=== PATIENT | male | born 1980 | race Caucasian/White ===

== ENCOUNTER 2016-06-28 13:42 | Observation (INO) | payer BC ==
--- NOTE | 2016-06-28 14:40 | ED ---
General Adult HPI - General Chief complaint: Chest Pain Stated complaint: Chest/Arm Pain Time Seen by Provider: 06/28/16 14:26 Source: patient, RN notes reviewed Mode of arrival: ambulatory Limitations: no limitations - History of Present Illness Initial comments: Patient 35-year-old male who presents emergency room today with chief complaint of left arm pain and chest pain. Patient does admit that he was at work earlier today proximal around noon he began feeling some discomfort to left arm. He states that over the last 2 days had a shooting pain up underneath him to the left rib cage. He states that today he noticed some burning type sensation to the left arm radiating up into the chest. States it was worse around noon. States she drove home from work was done to [place]. He states that this time currently 06/02 has improved some. States had pain with a shooting- type stabbing pain on the left side of the chest wall in the past but is never had burning sensation to the left arm in the past. He does admit to a family history of cardiac disease. He denies any other complaints or symptoms. Patient denies any recent fever, chills, shortness of breath, back pain, abdominal pain, numbness or tingling, dysuria or hematuria, constipation or diarrhea, headaches or visual changes, or any other complaints. - Related Data Home Medications Medication Instructions Recorded Confirmed CLIDINIUM-chlordiazePOXIDE [Librax] 1 cap PO BID 11/16/15 06/28/16 Simethicone [Gas-X] 125 mg PO DIRECTED PRN 11/16/15 06/28/16 Albuterol Sulfate [Proair Hfa] 2 puff INHALATION DAILY PRN 06/28/16 06/28/16 Atorvastatin [Lipitor] 10 mg PO HS 06/28/16 06/28/16 Lansoprazole [Prevacid] 30 mg PO DAILY 06/28/16 06/28/16 Allergies Allergy/AdvReac Type Severity Reaction Status Date / Time No Known Allergies Allergy Verified 06/28/16 15:29 Review of Systems ROS Statement: Those systems with pertinent positive or pertinent negative responses have been documented in the HPI. ROS Other: All systems not noted in ROS Statement are negative. Past Medical History Past Medical History: Hyperlipidemia, Pneumonia, Skin Disorder Additional Past Medical History / Comment(s): IBS, Fatty liver, alopecia, hypoglycemia History of Any Multi-Drug Resistant Organisms: None Reported Additional Past Surgical History / Comment(s): colonoscopy, vasectomy Past Anesthesia/Blood Transfusion Reactions: No Reported Reaction Past Psychological History: Anxiety Smoking Status: Former smoker Past Alcohol Use History: Occasional Additional Past Alcohol Use History / Comment(s): quit smoking 2008, smoked for 10-12 yrs, 1 PPD Past Drug Use History: None Reported - Past Family History Mother Family Medical History: No Reported History General Exam - General Exam Comments Initial Comments: General: The patient is awake and alert, in no distress, and does not appear acutely ill. Eye: Pupils are equal, round and reactive to light, extra-ocular movements are intact. No nystagmus. There is normal conjunctiva bilaterally. No signs of icterus. Ears, nose, mouth and throat: There are moist mucous membranes and no oral lesions. Neck: The neck is supple, there is no tenderness or JVD. Cardiovascular: There is a regular rate and rhythm. No murmur, rub or gallop is appreciated. Respiratory: Lungs are clear to auscultation, respirations are non-labored, breath sounds are equal. No wheezes, stridor, rales, or rhonchi. Gastrointestinal: Soft, non-distended, non-tender abdomen without masses or organomegaly noted. There is no rebound or guarding present. No CVA tenderness. Bowel sounds are unremarkable. Musculoskeletal: Normal ROM, no tenderness. Strength 5/5. Sensation intact. Pulses equal bilaterally 2+. Neurological: A&O x 3. CN II-XII intact, There are no obvious motor or sensory deficits. Coordination appears grossly intact. Speech is normal. Skin: Skin is warm and dry and no rashes or lesions are noted. Psychiatric: Cooperative, appropriate mood & affect, normal judgment. Limitations: no limitations Course Vital Signs 06/28/16 14:02 Temperature 97.8 F Pulse Rate 80 Respiratory 20 Rate Blood Pressure 125/84 O2 Sat by Pulse 98 Oximetry EKG Findings - EKG Comments: EKG Findings:: EKG performed at 1352: A 12-lead EKG was performed and interpreted by me as showing the following: Rate is 85, and rhythm is normal sinus. There are normal QRS complexes and normal R-wave progression. ST segments have no elevation or depression, and TX segments appear normal. Medical Decision Making - Medical Decision Making Patient reexamined at this time shows no signs of distress. Patient's x-rays negative. EKG shows normal sinus rhythm. Patient's cardiac enzymes negative. Patient will be admitted to observation for serial enzymes. - Lab Data Result diagrams: 06/28/16 15:19 06/28/16 15:19 Lab Results 06/28/16 06/28/16 06/28/16 Range/Units 15:19 15:19 15:19 WBC 6.2 (3.8-10.6) k/uL RBC 5.30 (4.30-5.90) m/uL Hgb 16.6 (13.0-17.5) gm/dL Hct 46.7 (39.0-53.0) % MCV 88.2 (80.0-100.0) fL MCH 31.2 (25.0-35.0) pg MCHC 35.4 (31.0-37.0) g/dL RDW 12.6 (11.5-15.5) % Plt Count 243 (150-450) k/uL Neutrophils % 69 % Lymphocytes % 21 % Monocytes % 6 % Eosinophils % 2 % Basophils % 1 % Neutrophils # 4.3 (1.3-7.7) k/uL Lymphocytes # 1.3 (1.0-4.8) k/uL Monocytes # 0.3 (0-1.0) k/uL Eosinophils # 0.1 (0-0.7) k/uL Basophils # 0.0 (0-0.2) k/uL PT (9.0-12.0) sec INR (<1.1) APTT (22.0-30.0) sec Sodium 143 (137-145) mmol/L Potassium 4.5 (3.5-5.1) mmol/L Chloride 106 (98-107) mmol/L Carbon Dioxide 24 (22-30) mmol/L Anion Gap 13 mmol/L BUN 18 (9-20) mg/dL Creatinine 1.01 (0.66-1.25) mg/dL Est GFR (MDRD) Af Amer >60 (>60 ml/min/1.73 sqM) Est GFR (MDRD) Non-Af >60 (>60 ml/min/1.73 sqM) Glucose 91 (74-99) mg/dL Calcium 9.7 (8.4-10.2) mg/dL Magnesium 2.1 (1.6-2.3) mg/dL Total Bilirubin 1.2 (0.2-1.3) mg/dL AST 31 (17-59) U/L ALT 58 (21-72) U/L Alkaline Phosphatase 79 (38-126) U/L Total Creatine Kinase 137 (55-170) U/L CK-MB (CK-2) 0.3 (0.0-2.4) ng/mL CK-MB (CK-2) Rel Index 0.2 Troponin I <0.012 (0.000-0.034) ng/mL Total Protein 8.1 (6.3-8.2) g/dL Albumin 4.9 (3.5-5.0) g/dL 06/28/16 Range/Units 15:19 WBC (3.8-10.6) k/uL RBC (4.30-5.90) m/uL Hgb (13.0-17.5) gm/dL Hct (39.0-53.0) % MCV (80.0-100.0) fL MCH (25.0-35.0) pg MCHC (31.0-37.0) g/dL RDW (11.5-15.5) % Plt Count (150-450) k/uL Neutrophils % % Lymphocytes % % Monocytes % % Eosinophils % % Basophils % % Neutrophils # (1.3-7.7) k/uL Lymphocytes # (1.0-4.8) k/uL Monocytes # (0-1.0) k/uL Eosinophils # (0-0.7) k/uL Basophils # (0-0.2) k/uL PT 11.8 (9.0-12.0) sec INR 1.2 (<1.1) APTT 24.2 (22.0-30.0) sec Sodium (137-145) mmol/L Potassium (3.5-5.1) mmol/L Chloride (98-107) mmol/L Carbon Dioxide (22-30) mmol/L Anion Gap mmol/L BUN (9-20) mg/dL Creatinine (0.66-1.25) mg/dL Est GFR (MDRD) Af Amer (>60 ml/min/1.73 sqM) Est GFR (MDRD) Non-Af (>60 ml/min/1.73 sqM) Glucose (74-99) mg/dL Calcium (8.4-10.2) mg/dL Magnesium (1.6-2.3) mg/dL Total Bilirubin (0.2-1.3) mg/dL AST (17-59) U/L ALT (21-72) U/L Alkaline Phosphatase (38-126) U/L Total Creatine Kinase (55-170) U/L CK-MB (CK-2) (0.0-2.4) ng/mL CK-MB (CK-2) Rel Index Troponin I (0.000-0.034) ng/mL Total Protein (6.3-8.2) g/dL Albumin (3.5-5.0) g/dL Disposition Clinical Impression: Chest pain Disposition: ADMITTED IP TO THIS [facility] Condition: Stable Time of Disposition: 16:20
[2016-06-28 15:33] LABS: Basophils % (A) 1 %; CH 30.5; CHCM 34.7; Eosinophils # (A) 0.1 k/uL (0-0.7); Eosinophils % (A) 2 %; HCT 46.7 % (39.0-53.0); HDW 2.66; HGB 16.6 gm/dL (13.0-17.5); Luc # (Auto) 0.15; Luc % (Auto) 2; Lymphocytes # (A) 1.3 k/uL (1.0-4.8); Lymphocytes % (A) 21 %; MCH 31.2 pg (25.0-35.0); MCHC 35.4 g/dL (31.0-37.0); MCV 88.2 fL (80.0-100.0); Mean Platelet Volume 6.3; Monocytes # (A) 0.3 k/uL (0-1.0); Monocytes % (A) 6 %; Neutrophils # (A) 4.3 k/uL (1.3-7.7); Neutrophils % (A) 69 %; RDW 12.6 % (11.5-15.5); WBC 6.2 k/uL (3.8-10.6); WBC (Perox) 6.05
[2016-06-28 15:42] LABS: ALT 58 U/L (21-72); AST 31 U/L (17-59); Alkaline Phosphatase 79 U/L (38-126); Anion Gap 13 mmol/L; Blood Urea Nitrogen 18 mg/dL (9-20); Calcium 9.7 mg/dL (8.4-10.2); Carbon Dioxide 24 mmol/L (22-30); Chloride 106 mmol/L (98-107); Glucose 91 mg/dL (74-99); INR 1.2 (<1.1); Magnesium 2.1 mg/dL (1.6-2.3); Non-African American GFR(MDRD) >60 (>60 ml/min/1.73 sqM); Partial Thromboplastin Time 24.2 sec (22.0-30.0); Potassium 4.5 mmol/L (3.5-5.1); Prothrombin Time 11.8 sec (9.0-12.0); Sodium 143 mmol/L (137-145); Total Bilirubin 1.2 mg/dL (0.2-1.3); Total Protein 8.1 g/dL (6.3-8.2)
--- NOTE | 2016-06-28 15:47 | XR ---
EXAMINATION TYPE: XR chest 2V DATE OF EXAM: 06/28/2016 3:42 PM COMPARISON: None HISTORY: 35-year-old male with a chest and left arm pain TECHNIQUE: PA and lateral views FINDINGS: The cardiomediastinal silhouette, aorta, and pulmonary vasculature are within normal limits. Band of atelectasis at the left base. Otherwise, lungs and pleural spaces are clear. IMPRESSION: No acute cardiopulmonary process.
[2016-06-28 15:57] LABS: Creatine Kinase 137 U/L (55-170)
[2016-06-28 16:10] LABS: Troponin I <0.012 ng/mL (0.000-0.034)
[2016-06-28 16:11] LABS: Creatine Kinase MB 0.3 ng/mL (0.0-2.4)
[2016-06-28] MEDS ORDERED: NITROGLYCERIN SL TABS 0.4 MG TAB SUBLINGUAL PRN (16:30)
[2016-06-28] MEDS ORDERED: HEPARIN SODIUM,PORCINE 5,000 UNIT/ML 1 ML VIAL IV ONE (16:30)
[2016-06-28] MEDS ORDERED: HEPARIN SODIUM,PORCINE/D5W PMX 25,000 UNIT in DEXTROSE/WATER 1 500ML.BAG IV SCH (16:30)
[2016-06-28] MEDS ORDERED: SODIUM CHLORIDE 0.9% 1,000 ML IV STA (16:52)
[2016-06-28 20:40] VITALS: BMI 36.4
[2016-06-28 23:39] LABS: Creatine Kinase 111 U/L (55-170)
[2016-06-28 23:52] LABS: Creatine Kinase MB <0.2 ng/mL (0.0-2.4); Troponin I <0.012 ng/mL (0.000-0.034)
[2016-06-29] MEDS ORDERED: HEPARIN SODIUM,PORCINE 5,000 UNIT/ML 1 ML VIAL IV PRN (01:39)
[2016-06-29 05:04] LABS: Cholesterol 189 mg/dL (<200); HDL Cholesterol 36 mg/dL (40-60); Triglycerides 188 mg/dL (<150)
[2016-06-29 05:06] LABS: Creatine Kinase 105 U/L (55-170)
[2016-06-29 05:18] LABS: Creatine Kinase MB <0.2 ng/mL (0.0-2.4); Troponin I <0.012 ng/mL (0.000-0.034)
[2016-06-29 07:12] LABS: Glucose,Whole Blood 89 mg/dL (75-99)
[2016-06-29] MEDS ORDERED: ASPIRIN 325 MG TAB PO SCH (09:00)
--- NOTE | 2016-06-29 10:26 | CONS ---
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 He tried to clean out his barn on the weekend. This happened probably 48 hours or 24 hours after his work. 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 He does not heavy work at his usual jobs. About a year ago, for atypical chest pain he had a stress test and walked for over 10 minutes without any ischemia. This was a nuclear study. LV function was normal. His quality of discomfort in the chest seems very musculoskeletal, not suggestive of angina. EKG is unremarkable. Revealed sinus mechanism and some early repolarization-type changes. Three sets of troponins are normal. He is resting comfortably without symptoms at this time and indicates to me that his left arm sensation of feeling warm has also resolved. He feels quite well this morning. PAST MEDICAL HISTORY: 1. Hyperlipidemia. 2. History of some gastroesophageal reflux disease. 3. Atypical chest pain with a negative stress test about a year ago. Medications at home include Prevacid, albuterol inhaler, simethicone and Lipitor 10 mg daily. ALLERGIES: None. REVIEW OF SYSTEMS: Unremarkable other than above-mentioned facts. On examination, blood pressure is 122/78, pulse rate 62 per minute. HEENT: Unremarkable. Fundus was not examined by me. Neck is supple. No JVD. I do not hear a carotid bruit. There is no thyromegaly. Heart exam reveals S1 and S2 heard normally without a rub, murmur or gallop. Lungs are clear. Abdomen is soft, nontender. Lower extremities reveal normal pulses. No edema. Central nervous system is normal. EKG revealed sinus mechanism with some early repolarization-type changes. IMPRESSION: 1. Atypical musculoskeletal chest pain. 2. Normal stress test about one year ago. 3. Hyperlipidemia. RECOMMENDATIONS: I am recommending that we discontinue IV heparin, put a Hep-Lock, increase activity. If he has no further symptoms, he can be discharged and I am advising symptomatic treatment in the form of nonsteroidals or Tylenol for pain and to return to work on Sunday without restrictions. Advised to follow up with his PCP. If symptoms recur or persist, he is advised to give me a call. Thank you very much for the consult.
[2016-06-29 12:07] VITALS: BP 138/81; PULSE 73; RESP 18; TEMP 97.5
--- NOTE | 2016-06-29 21:47 | HP ---
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 Patient did not do anything abnormal than his regular work. Patient was complaining of left rib cage pain and sharp in nature; nonradiating, constant, which resolved at this point of time. Patient was diagnosed with musculoskeletal pain and was cleared for discharge. Patient's pain improved and because of pleuritic nature of the pain, I ordered a D-dimer which was negative and patient denied any cough, runny nose. Patient will be discharged today. ROS: all other systems were reviewed and were negative. Home medications include: 1. ( ) 2. Simethicone. 3. Albuterol. 4. Lansoprazole. 5. Atorvastatin. PAST MEDICAL HISTORY: Hyperlipidemia, irritable bowel syndrome, anxiety disorder. SOCIAL HISTORY: Former smoker. Quit smoking 10 to 12 years ago. Denied any alcohol abuse or any drug abuse. FAMILY HISTORY: None. PHYSICAL EXAMINATION: VITAL SIGNS: Temperature 97.5, pulse of 73, respiratory rate of 18, blood pressure is 138/84, saturating at 96% room air. GENERAL: The patient is alert and oriented x3, not in any acute distress. Well developed, well nourished. HEENT: Pupils are round and equally reacting to light. EOMI. No scleral icterus. No conjunctival pallor. Normocephalic, atraumatic. No pharyngeal erythema. No thyromegaly. CARDIOVASCULAR: S1 and S2 present. No murmurs, rubs, or gallops. PULMONARY: Chest is clear to auscultation, no wheezing or crackles. ABDOMEN: Soft, nontender, nondistended, normoactive bowel sounds. No palpable organomegaly. MUSCULOSKELETAL: No joint swelling or deformity. EXTREMITIES: No cyanosis, clubbing, or pedal edema. NEUROLOGICAL: Gross neurological examination did not reveal any focal deficits. SKIN: No rashes. FINAL DIAGNOSES: 1. Chest pain, appears to be musculoskeletal in nature. Ruled out acute coronary syndrome. Ruled out pulmonary embolism. Patient will be discharged today and patient has some degenerative neck disease. Patient will benefit from outpatient occupational therapy and physical therapy. 2. Hyperlipidemia. Patient can continue his home medications. 3. Gastroesophageal reflux disease. Patient can continue his lansoprazole. 4. Patient will be discharged. [facility]
== END 2016-06-29 15:25 | disposition home or self-care (01) ==
LOC: EC 13:42 → 3OBS 18:46
PROVIDERS: ADMIT Internal Medicine; ATTEND Internal Medicine
DX: R07.89 Other chest pain (principal); M79.602 Pain in left arm; E78.5 Hyperlipidemia, unspecified; K58.9 Irritable bowel syndrome, unspecified; K21.9 Gastro-esophageal reflux disease without esophagitis; Z82.49 Family history of ischemic heart disease and other diseases of the circulatory system; Z79.899 Other long term (current) drug therapy; Z87.891 Personal history of nicotine dependence
CPT/HCPCS: 99285; 96365 ×2; 96366 ×3; 96376 ×2; 36415; 93005; 85379; 80061; 80053; 82550 ×2; 82553 ×2; 83735; 84484 ×2; 85025; 85610; 85730 ×2; 71020; G0378 ×2; J1644 ×2

== ENCOUNTER → 2018-06-11 | Outpatient (CLI) | payer BC ==
--- NOTE | 2018-06-11 18:35 | CONS ---
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 The patient snores and stops breathing, and there have been witnessed apneas reported by his . He wakes up tired and sleepy during the day and he feels tired throughout the day; and the patient can easily take a nap. He typically takes a nap at lunchtime, even at work. He goes to bed around 9 p.m., wakes up at 4:30 a.m. in the morning. He lives in [place] and he drives back and forth to [place]. He is also having some issues with palpitations, especially at nighttime. At times he wakes up gasping for air, and there is a high likelihood that the patient may have underlying obstructive sleep apnea. His Lindrith score is 13. He has undergone a cardiac evaluation by Dr. Mccord, including an echocardiogram and stress test, without any significant abnormalities noted. No recent weight gain. He wakes up with a dry mouth. He has nighttime heartburn. He has been taking a combination of Librax and Prevacid. He wakes up with a dry mouth in the morning. No sleep paralysis. No hallucinations. No cataplexy. Lindrith Score is 13. No history of any motor vehicle accident because of feeling drowsy or sleepy. PAST MEDICAL HISTORY: Hyperlipidemia and chronic gastritis/acid reflux. PAST SURGICAL HISTORY: Vasectomy. DRUG ALLERGIES: NOT KNOWN. OUTPATIENT MEDICATIONS: Include: 1. Lipitor. 2. Librax. 3. Prevacid. SOCIAL HISTORY: The patient chews tobacco. He used to be a cigarette smoker in the past. He drinks alcohol on weekends. No history of substance abuse. He has 3 children. FAMILY HISTORY: Mother has hypertension and diabetes mellitus. Father has arthritis and hypertension. REVIEW OF SYSTEMS: Twelve-point review of systems was done. There is no recent weight loss or weight gain. The patient has gained only 10 to 15 pounds over the past 10 years. He has chronic problems with stomach with gases or gastritis, for which he is on a combination of Librax and Prevacid. He has no nocturia. No grinding of the teeth. He wakes up at times gasping for air. He has heartburn and palpitations, as mentioned. No issues with memory or concentration. He does not fall asleep while driving. No history of stroke or CVA. No degenerative arthritis. No body aches or pains. No wounds or ulceration. No dyspnea, cough, chest tightness or wheezing. No headaches. No history of any insomnia. No history of anemia or thyroid disease. No nasal polyposis. PHYSICAL EXAMINATION: BP is 127/78, pulse 74, respirations 16, temperature 98.1, saturation 95% on room air. Weight is 254. Height is 5 feet 8 inches. Neck size is 18 inches. BMI 38.0. Lindrith score is 13. GENERAL APPEARANCE: Calm, comfortable. HEAD: Atraumatic, normocephalic. NECK: Supple. No JVD. No goiter or neck masses. Mallampati class II. LUNGS: Clear to auscultation. Heart sounds are regular rate and rhythm. Normal S1, S2. No S3, S4. No murmurs. ABDOMEN: Soft, nontender. No organomegaly. EXTREMITIES: No edema. No cyanosis or clubbing. NEUROLOGIC: Alert and oriented x3. No focal neurological deficits. PSYCHIATRIC: Negative for anxiety or depression. IMPRESSION: 1. Hypersomnia. Lindrith score of 13, currently under consideration for obstructive sleep apnea. 2. Loud snoring. 3. Witnessed apneas. 4. Nocturnal palpitations. 5. Hyperlipidemia. 6. Chronic gastritis/reflux. PLAN: 1. Encourage avoiding alcohol drinking late at nighttime. 2. Encourage weight loss. 3. Implement good sleep hygiene measures. 4. Home sleep study, looking to screen this patient for obstructive sleep apnea. MMODL / IJN: [id number] /
== END | disposition home or self-care (01) ==
LOC: SLEEP 15:25
PROVIDERS: ATTEND Internal Medicine Critical Care Medicine
DX: G47.10 Hypersomnia, unspecified (principal); R06.83 Snoring; R00.2 Palpitations; R12 Heartburn; R68.2 Dry mouth, unspecified; E78.5 Hyperlipidemia, unspecified; K21.9 Gastro-esophageal reflux disease without esophagitis; K29.50 Unspecified chronic gastritis without bleeding; Z98.52 Vasectomy status; Z79.899 Other long term (current) drug therapy; Z72.0 Tobacco use
CPT/HCPCS: 99211

== ENCOUNTER 2018-07-11 11:56 | Day surgery (SDC) | payer BC ==
[2018-07-09 11:47] VITALS: BMI 36.1
[~2018-07-11 11:56] MED LIST: DEXAMETHASONE SOD PHOSPHATE 10 MG/ML 1 ML VIAL IV ONE; HYDROmorphone 0.5 MG/0.5 ML SYRINGE IVP PRN; LACTATED RINGERS 1,000 ML IV SCH; LIDOCAINE 1% 20 ML VIAL (10MG/ML) FOR IV START INTRADERMA PRN; MIDAZOLAM 2 MG/2 ML VIAL IV PRN; ONDANSETRON 4 MG/2 ML VIAL IVP ONE; SCOPOLAMINE 1.5MG/72HR PATCH TRANSDERM ONE
[2018-07-11 12:13] VITALS: RESP 16; TEMP 97.5
[2018-07-11] MEDS ORDERED: LIDOCAINE 1% 20 ML VIAL (10MG/ML) FOR IV START INTRADERMA ONE (12:16)
[2018-07-11] MEDS ORDERED: LIDOCAINE 1% INJ 10MG/ML (20 ML MDV) ONE (12:46)
[2018-07-11] MEDS ORDERED: fentaNYL (PF) 50 MCG/ML 2 ML AMP ONE (12:46)
[2018-07-11] MEDS ORDERED: PROPOFOL 10 MG/ML 20 ML VIAL IV ONE (12:46)
[2018-07-11] MEDS ORDERED: MIDAZOLAM 2 MG/2 ML VIAL ONE (12:46)
--- NOTE | 2018-07-11 13:29 | P.PCN ---
Date of Procedure: 07/11/18 Procedure(s) Performed: Procedure: 1. Esophagogastroduodenoscopy and biopsy. 2. Colonoscopy and biopsy. Preoperative diagnosis: History of gastroesophageal reflux disease and rectal bleeding. Postoperative diagnosis: 1. Mild gastritis but no obvious esophagitis or complicated reflux disease or any ulcers or gastric outlet obstruction. 2. Multiple biopsies obtained from the duodenum, antrum and esophagus. 3. Colon and terminal ileum revealed low-grade internal hemorrhoids without bleeding at the time of examination, otherwise, exam shows no evidence of inflammatory bowel disease, neoplasia or bleeding. 4. Biopsies obtained from the terminal ileum and right colon. Preparation: HalfLytely prep. Sedation: Was provided by anesthesia Brief clinical history: The patient is a 37-year-old male who I have evaluated in the office last month for complaints of GERD and nausea. This has been occurring despite taking lansoprazole which helps his symptoms some. He continues to have issues with rectal bleeding which he thinks is related to an anal fissure. His last EGD and colonoscopy was in May 2009 and and he had an upper endoscopy subsequent to that in 2015. I scheduled this evaluation because of the persistence of his symptoms to guide therapy. Procedure: With the patient on his left lateral decubitus position and after informed consent and adequate sedation, I passed the Olympus-[employer]ile Family H190 video upper endoscope through the cricopharyngeus down the esophagus. GE junction was around 40 cm from the incisors and there was no evident hiatal hernia or any obvious esophagitis or complicated reflux disease. The endoscope was then passed into the stomach which was insufflated with air and inspected in detail including the retroflex view in the cardia. There was some mottling and erythema in the antrum but no ulcers or erosions. Pyloric channel, duodenal bulb, post bulbar area and descending duodenum appeared within normal limits. I obtained biopsies from the duodenum, antrum and esophagus then the endoscope was withdrawn and I proceeded to perform the colonoscopy. Perianal area did not show any fissures or fistulas. There were no masses felt on digital rectal examination. The Olympus CFH 190L video colonoscope was then inserted in the rectum in the usual fashion and advanced to the cecum. I intubated the ileocecal valve and examined the terminal ileum. Terminal ileum and colon appeared healthy with no edema, erythema, friability, ulceration, exudation or spontaneous bleeding. No polyps or tumors were seen or any obvious diverticular disease. I obtained biopsies from the terminal ileum and right colon then I retroflexed the endoscope in the rectum before the endoscope was withdrawn. Low-grade internal hemorrhoids were noted with no evidence of bleeding. The patient tolerated the procedure well. Plan: The patient was reassured. Discussed dietary measures and local care for hemorrhoids which would be beneficial even if he has a fissure that is not open at the time of the examination today. Will await biopsy results and make further plans. I will keep you updated on his progress.
[2018-07-11 13:44] VITALS: BP 131/89; PULSE 59
== END 2018-07-11 14:05 | disposition home or self-care (01) ==
LOC: ORWHC2ENDO 11:56
DX: K29.50 Unspecified chronic gastritis without bleeding (principal); K64.8 Other hemorrhoids; K21.0 Gastro-esophageal reflux disease with esophagitis; E78.5 Hyperlipidemia, unspecified; I10 Essential (primary) hypertension; E66.9 Obesity, unspecified; Z68.37 Body mass index [BMI] 37.0-37.9, adult; Z79.899 Other long term (current) drug therapy
CPT/HCPCS: 88305; 45380; 43239; J2250; J2001; J3010; J2704

== ENCOUNTER → 2020-06-04 | Outpatient (CLI) | payer BC ==
--- NOTE | 2020-06-04 14:40 | CT ---
EXAMINATION TYPE: CT facial bones wo con DATE OF EXAM: 06/04/2020 COMPARISON: None. HISTORY: Acute recurrent maxillary sinusitis. Dizziness with vision change per patient. CT DLP: 793 mGycm. Automated Exposure Control for Dose Reduction was Utilized. TECHNIQUE: CT scan of the facial bones are performed without contrast. FINDINGS: The paranasal sinuses are grossly clear. No suspicious opacification or air-fluid levels ar e seen. The ostiomeatal complex is patent bilaterally on Coronal image 34. No acute or subacute displaced facial bone fracture. No suspicious bony destruction. Orbital floors a nd guy are intact. Globes are intact bilaterally. No suspicious opacification of the mastoid air cells. Visualized portion of brain parenchyma is unrem arkable. Some prominent but subcentimeter lymph nodes seen posterior to the submandibular glands bilaterally. No definitive abnormal greater than 1 cm lymph nodes. Visualized portion of the airway is patent. IMPRESSION: No acute or chronic paranasal sinus disease.
== END | disposition home or self-care (01) ==
LOC: RADCTMAIN 14:08
PROVIDERS: ATTEND Family Medicine
DX: J01.01 Acute recurrent maxillary sinusitis (principal)
CPT/HCPCS: 70486

== ENCOUNTER → 2022-06-27 | Outpatient (CLI) | payer BC ==
--- NOTE | 2022-06-27 16:24 | P.PN ---
Progress Note - Text Progress Note Date: 06/27/22 This is a 41-year-old male patient with known history of obstructive sleep apnea. The patient has an AHI of 10. The patient is coming in for regular check his last evaluation with me was back in October 2019. His interim history is positive for Covid 19 infection with subsequent respiratory failure. The patient ultimately recovered. He has gained weight during the process. His current weight is up to 283 pounds. He continues to use CPAP therapy and is currently on APAP mode pressures of 5/15 cm of water. He is utilizing his machine on a regular basis. His machine is functional. Based on his compliancy data that has been collected over the past 30 days, he has been averaging around 5.9 hours of CPAP use per night and did leak is in order of 4 L/m and his AHI down to 0.5. Average pressure delivered by the machines around 11.5 cm of water. He is using a dreamware nasal mask, medium size, under the nose. No significant leaks around the mask. No other complaints otherwise. No hypersomnia or sleepiness during the day. No headaches. No chest pain or shortness of breath. His sleep quality is good. His current [place] score is at 9 BP is 130/86, pulse is 88, respirations 16, temperature is 98.2, oxygen saturation is 96%, body mass index is 42, weight is 283. The patient appeared well nourished and normally developed. Vital signs as documented. Head exam is unremarkable. No scleral icterus or corneal arcus noted. Neck is without jugular venous distension, thyromegaly, or carotid bruits. Carotid upstrokes are brisk bilaterally. Lungs are clear to auscultation and percussion. Cardiac exam reveals the PMI to be normally sized and situated. Rhythm is regular. First and second heart sounds normal. No murmurs, rubs or gallops. Abdominal exam reveals normal bowel sounds, no masses, no organomegaly and no aortic enlargement. Extremities are nonedematous and both femoral and pedal pulses are normal.Examination of the skin revealed no evidence of significant rashes, suspicious appearing nevi or other concerning lesions.Neurologically, the patient is awake and alert and the patient does not have any focal neurological deficit. Cranial nerves are essentially intact. Assessment Obstructive sleep apnea with an AHI of 10. The patient is undergoing successful CPAP therapy and the patient remains on APAP mode Chronic hypersomnia, improved with CPAP therapy. Snoring, recovered with CPAP therapy Previous history of Covid 19 infection Obesity with a body mass index of 42 Plan Encourage weight loss Keep the patient APAP mode Compliancy data was checked and the patient is compliant to CPAP therapy No need for any further adjustments Refill the supplies Maintain good sleep hygiene measures CVA back in one year's time and follow-up
== END ==
LOC: SLEEP 15:51
PROVIDERS: ATTEND Internal Medicine Critical Care Medicine
DX: G47.33 Obstructive sleep apnea (adult) (pediatric) (principal); Z99.89 Dependence on other enabling machines and devices; Z86.16 Personal history of COVID-19; E66.9 Obesity, unspecified; Z68.41 Body mass index [BMI] 40.0-44.9, adult; Z87.891 Personal history of nicotine dependence
CPT/HCPCS: 99212